=== PATIENT | male | born 1985 | race African-American/Black ===

== ENCOUNTER 2017-09-26 02:23 | Emergency (ER) | payer SELFPAY ==
[2017-09-26 02:28] VITALS: BP 130/87
[2017-09-26 03:04] LABS: CHLORIDE,CL 105 mmol/L (98-107); SODIUM,NA 139 mmol/L (136-145)
[2017-09-26] MEDS ORDERED: Ketorolac 60 MG/2 ML SDV IM ONE (03:16)
--- NOTE | 2017-09-26 03:20 | EDM.PDOC ---
ED HPI GENERAL MEDICAL PROBLEM - General Chief Complaint: Headache Stated Complaint: headache Time Seen by Provider: 09/26/17 02:30 Source of Information: Reports: Patient History Limitations: Reports: Language Barrier - History of Present Illness INITIAL COMMENTS - FREE TEXT/NARRATIVE: Patient is a 32-year-old who is seen with chief complaint of frontal headaches states that the headache started at around 9p.m. 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 they referred him for evaluation here patient was evaluated Onset: Today Duration: Hour(s):, Constant Location: Reports: Head Quality: Reports: Ache, Throbbing Severity: Severe (8 out of 10) Improves with: Reports: Rest Worsens with: Reports: Movement Context: Reports: Activity Associated Symptoms: Reports: No Other Symptoms Treatments TIRE SETTER: Reports: Acetaminophen Parietal Headache Pain Score (Numeric/FACES): 8 - Related Data Allergies Allergy/AdvReac Type Severity Reaction Status Date / Time No Known Drug Allergies Allergy none Verified 09/26/17 02:27 Home Meds: Home Meds Amoxicillin/Clavulanate K [Augmentin 875-125 MG] 1 tab PO BID 10 Days #20 tablet 09/26/17 [Rx] Past Medical History - Infectious Disease History Infectious Disease History: Reports: Chicken Pox Other Infectious Disease History: chicken pox as a child Social & Family History - Family History Family Medical History: Noncontributory - Tobacco Use Smoking Status *Q: Current Every Day Smoker Years of Tobacco use: 2 Packs/Tins Daily: 0.5 - Caffeine Use Caffeine Use: Reports: Energy Drinks Other Caffeine Use: Energy drink usage- 1 every other day - Recreational Drug Use Recreational Drug Use: No ED ROS GENERAL - Review of Systems Review Of Systems: See Below Constitutional: Reports: No Symptoms HEENT: Reports: No Symptoms Respiratory: Reports: No Symptoms Cardiovascular: Reports: No Symptoms Endocrine: Reports: No Symptoms GI/Abdominal: Reports: No Symptoms : Reports: No Symptoms Musculoskeletal: Reports: No Symptoms Skin: Reports: No Symptoms Neurological: Reports: No Symptoms Psychiatric: Reports: No Symptoms Hematologic/Lymphatic: Reports: No Symptoms Immunologic: Reports: No Symptoms - Physical Exam Exam: See Below Exam Limited By: No Limitations General Appearance: Alert, WD/WN, No Apparent Distress Ears: Normal External Exam, Normal Canal, Hearing Grossly Normal, Normal TMs Nose: Normal Inspection, Normal Mucosa, No Blood Throat/Mouth: Normal Inspection, Normal Lips, Normal Teeth, Normal Gums, Normal Oropharynx, Normal Voice, No Airway Compromise Head Exam: Atraumatic, Normocephalic Neck: Normal Inspection, Supple, Non-Tender, Full Range of Motion Respiratory/Chest: No Respiratory Distress, Lungs Clear, Normal Breath Sounds, No Accessory Muscle Use, Chest Non-Tender Cardiovascular: Normal Peripheral Pulses, Regular Rate, Rhythm, No Edema, No Gallop, No JVD, No Murmur, No Rub GI/Abdominal: Normal Bowel Sounds, Soft, Non-Tender, No Organomegaly, No Distention, No Abnormal Bruit, No Mass (Male) Exam: No Hernia, Normal Inspection, Normal Prostate, Circumcised Rectal (Males) Exam: Deferred Neuro Exam (Abbreviated): Alert, Oriented, CN II-XII Intact, Normal Cognition, Normal Gait, Normal Reflexes Back Exam: Normal Inspection, Full Range of Motion, NT Extremities: Normal Inspection, Normal Range of Motion, Non-Tender, No Pedal Edema, Normal Capillary Refill Psychiatric: Normal Affect, Normal Mood Skin Exam: Warm, Dry, Intact, Normal Color, No Rash Comments: CT of the head showed no intracranial bleed but did show some left maxillary sinusitis I will give him a prescription for Augmentin 875 for 10 days Course - Vital Signs Last Recorded V/S: Last Vital Signs Temp 97.4 F 09/26/17 02:27 Pulse 65 09/26/17 02:27 Resp 14 09/26/17 02:27 BP 130/87 09/26/17 02:27 Pulse Ox 100 09/26/17 02:27 - Orders/Labs/Meds Orders: Active Orders 24 hr Category Date Time Status CTA Head W & W/O Contrast [Ang Head] [CT] Stat Exams 09/26/17 02:42 Stop Req Head wo Cont [CT] Stat Exams 09/26/17 02:46 Ordered Labs: Laboratory Tests 09/26/17 09/26/17 Range/Units 02:47 02:47 WBC 5.6 (4.0-10.2) K/uL RBC 4.64 (4.33-5.41) M/uL Hgb 14.1 (13.1-16.8) g/dL Hct 40.8 (39.0-49.0) % MCV 87.9 (84.0-98.0) fL MCH 30.4 (28.2-33.3) pg MCHC 34.6 (31.7-36.0) g/dL RDW 13.0 (11.2-14.1) % Plt Count 177 (150-350) K/uL Neut % (Auto) 42.6 L (45.0-80.0) % Lymph % (Auto) 46.6 (10.0-50.0) % Crawford % (Auto) 8.1 (2.0-14.0) % Eos % (Auto) 2.5 (0.0-5.0) % Baso % (Auto) 0.2 (0.0-2.0) % Neut # (Auto) 2.37 (1.40-7.00) K/uL Lymph # (Auto) 2.59 (0.50-3.50) K/uL Crawford # (Auto) 0.45 (0.00-1.00) K/uL Eos # (Auto) 0.14 (0.00-0.50) K/uL Baso # (Auto) 0.01 (0.00-0.20) K/uL Sodium 139 (136-145) mmol/L Potassium 3.6 (3.5-5.1) mmol/L Chloride 105 (98-107) mmol/L Carbon Dioxide 29.4 (21.0-32.0) mmol/L BUN 10 (7-18) mg/dL Creatinine 1.10 (0.51-1.17) mg/dL Est Cr Clr Drug Dosing TNP Estimated GFR (MDRD) > 60 mL/min Glucose 95 (74-106) mg/dL Calcium 8.9 (8.5-10.1) mg/dL Departure - Departure Time of Disposition: 03:24 Disposition: Home, Self-Care 01 Condition: Good Clinical Impression: Generalized headaches, Sinusitis, Sinusitis - Discharge Information *PRESCRIPTION DRUG MONITORING PROGRAM REVIEWED*: Not Applicable *COPY OF PRESCRIPTION DRUG MONITORING REPORT IN PATIENT JOSE ANGEL: Not Applicable Instructions: Sinusitis, Adult, [id number] Care Plan Goals: Patient will be sent home he is to start his medications in the morning for sinusitis Augmentin 875 twice a day for 10 days - My Orders Last 24 Hours: My Active Orders 09/26/17 02:42 CTA Head W & W/O Contrast [Ang Head] [CT] Stat 09/26/17 02:46 Head wo Cont [CT] Stat - Assessment/Plan Last 24 Hours: My Active Orders 09/26/17 02:42 CTA Head W & W/O Contrast [Ang Head] [CT] Stat 09/26/17 02:46 Head wo Cont [CT] Stat
== END 2017-09-26 03:50 | disposition home or self-care (01) ==
LOC: LL.ED 02:23
DX: J32.9 Chronic sinusitis, unspecified (principal); F17.210 Nicotine dependence, cigarettes, uncomplicated
CPT/HCPCS: 36415; 70450; 80048; 85025; 96372; 99284; J1885